=== PATIENT | female | born 1990 | race Caucasian/White ===

== ENCOUNTER 2020-05-05 21:57 | Emergency (ER) | payer SELFPAY ==
[~2020-05-05] VITALS: Ht 167.6 cm; Wt 90.7 kg
== END 2020-05-05 23:03 | disposition home or self-care (01) ==
LOC: ER 21:57
DX: S91.115A Laceration without foreign body of left lesser toe(s) without damage to nail, initial encounter (principal); Z88.5 Allergy status to narcotic agent; W29.3XXA Contact with powered garden and outdoor hand tools and machinery, initial encounter
CPT/HCPCS: 12001; 99282-25

== ENCOUNTER → 2020-10-23 | Outpatient (CLI) | payer OTHER ==
[2020-10-25 07:10] LABS: HPV 16 Negative (Negative); HPV 18 Negative (Negative); HPV OTHER HR TYPES Negative (Negative)
== END | disposition home or self-care (01) ==
LOC: LAB 15:37 → LAB SHORT 15:37
PROVIDERS: Family Medicine
DX: O09.91 Supervision of high risk pregnancy, unspecified, first trimester (principal)
CPT/HCPCS: 87624; G0123

== ENCOUNTER 2020-12-01 11:53 | Emergency (ER) | payer OTHER ==
[~2020-12-01] VITALS: Ht 172.7 cm; Wt 112.0 kg
[2020-12-01 12:58] LABS: Source, Urine Clean Catch
[2020-12-01 13:06] LABS: BASOPHILS ABSOLUTE AUTO 0.02 K/mm3 (0.00-0.23); BASOPHILS PERCENT AUTO 0 % (0-2); EOSINOPHILS ABSOLUTE AUTO 0.19 K/mm3 (0.00-0.68); EOSINOPHILS PERCENT AUTO 2 % (0-6); Hematocrit 37.8 % (33.0-51.0); Hemoglobin 12.5 g/dL (11.5-16.0); IMMATURE GRAN ABSOLUTE AUTO 0.05 K/mm3 (0.00-0.10); IMMATURE GRAN PERCENT AUTO 0 % (0-1); LYMPHOCYTES ABSOLUTE AUTO 2.21 K/mm3 (0.84-5.20); LYMPHOCYTES PERCENT AUTO 18 % (21-46); MONOCYTES ABSOLUTE AUTO 0.54 K/mm3 (0.16-1.47); MONOCYTES PERCENT AUTO 4 % (4-13); Mean Corpuscular HGB 29.4 pg (26.0-34.0); Mean Corpuscular HGB Conc 33.1 g/dL (31.5-36.5); Mean Corpuscular Volume 89 fL (80-100); Mean Platelet Volume 10.4 fL (9.1-12.4); NEUTROPHILS ABSOLUTE AUTO 9.21 K/mm3 (1.96-9.15); NEUTROPHILS PERCENT AUTO 75 % (41-73); Platelet Count 286 K/mm3 (150-400); RDW Coefficient Variation 15.2 % (11.7-14.2); RDW Standard Deviation 49.1 fL (35.1-46.3); Red Blood Cell Count 4.25 M/mm3 (3.80-5.20); White Blood Cell Count 12.22 K/mm3 (4.00-11.30)
[2020-12-01 13:07] LABS: Appearance, Urine Clear (Clear); Bilirubin, Urine Neg (Neg); Blood, Urine 4+ (Neg); Color, Urine Yellow (P-Yellow); Glucose Qualitative, Urine Neg (Neg); Ketones, Urine Neg (Neg); Leukocyte Esterase, Urine Neg (Neg); Nitrite, Urine Neg (Neg); Protein, Urine Neg (Neg); Urobilinogen, Urine NORM (Normal)
[2020-12-01 13:28] LABS: Alanine Aminotransfer (ALT/SGP 12 U/L (12-78); Albumin/Globulin Ratio 0.6 (0.8-1.8); Alk Phos 83 U/L (50-136); Anion Gap 6 mmol/L (6-16); Aspartate Aminotrans (AST/SGOT 15 U/L (12-37); Bilirubin, Total 0.2 mg/dL (0.1-1.0); Blood Urea Nitrogen 6 mg/dL (8-24); Bun/Creatinine Ratio 11.2 (12.0-20.0); CO2, Blood 24 mmol/L (21-32); Calcium, Blood 9.3 mg/dL (8.5-10.1); Chloride, Blood 106 mmol/L (98-108); Creatinine, Blood 0.54 mg/dL (0.40-1.00); Globulin, Blood 4.7 g/dL (2.2-4.0); Glomerular Filtration Rate >60 (60-); Glucose, Blood 77 mg/dL (70-99); Potassium, Blood 3.8 mmol/L (3.5-5.5); Sodium, Blood 136 mmol/L (136-145); Total Protein, Blood 7.7 g/dL (6.4-8.2)
[2020-12-01 13:32] LABS: Red Blood Cells, Urine 0-2 /hpf (0-2); Squamous Epithelial Cells Mod /hpf (Few)
[2020-12-01 13:33] LABS: Bacteria Many /hpf
[2020-12-01] MEDS ORDERED: ZOLOFT100 M6 PO (14:12)
[2020-12-01] MEDS ORDERED: Keflex500 MG PO (15:13)
== END 2020-12-01 15:20 | disposition home or self-care (01) ==
LOC: ER 11:53
PROVIDERS: Physician Assistant
DX: O20.0 Threatened abortion (principal); O23.42 Unspecified infection of urinary tract in pregnancy, second trimester; F17.200 Nicotine dependence, unspecified, uncomplicated; Z3A.19 19 weeks gestation of pregnancy; Z88.5 Allergy status to narcotic agent
CPT/HCPCS: 76815; 80053; 81001; 85025; 86900; 86901; 96365; 96372-59; 99284-25; J0696; J2791; J7120

== ENCOUNTER → 2021-04-26 | Outpatient (CLI) | payer OTHER ==
[~2021-04-26] MED LIST: Keflex500 MG PO; ZOLOFT100 M6 PO
== END | disposition home or self-care (01) ==
LOC: LAB SHORT 13:07
DX: O09.91 Supervision of high risk pregnancy, unspecified, first trimester (principal)
CPT/HCPCS: 87081; 87150

== ENCOUNTER 2021-05-01 05:15 | Inpatient (IN) | payer OTHER ==
[~2021-05-01] VITALS: Ht 172.7 cm; Wt 116.8 kg
[2021-05-01] MEDS ORDERED: B12-FOLIC ACID1 EACH PO (05:46)
[2021-05-01] MEDS ORDERED: Iron Chews15 MG PO (05:46)
[2021-05-01] MEDS ORDERED: PRENATAL TABLE1 EAC2 PO (05:46)
[2021-05-01 06:20] LABS: BASOPHILS ABSOLUTE AUTO 0.02 K/mm3 (0.00-0.23); BASOPHILS PERCENT AUTO 0 % (0-2); EOSINOPHILS ABSOLUTE AUTO 0.18 K/mm3 (0.00-0.68); EOSINOPHILS PERCENT AUTO 1 % (0-6); Hematocrit 31.9 % (33.0-51.0); Hemoglobin 10.5 g/dL (11.5-16.0); IMMATURE GRAN ABSOLUTE AUTO 0.05 K/mm3 (0.00-0.10); IMMATURE GRAN PERCENT AUTO 0 % (0-1); LYMPHOCYTES ABSOLUTE AUTO 2.91 K/mm3 (0.84-5.20); LYMPHOCYTES PERCENT AUTO 20 % (21-46); MONOCYTES ABSOLUTE AUTO 0.73 K/mm3 (0.16-1.47); MONOCYTES PERCENT AUTO 5 % (4-13); Mean Corpuscular HGB 28.5 pg (26.0-34.0); Mean Corpuscular HGB Conc 32.9 g/dL (31.5-36.5); Mean Corpuscular Volume 87 fL (80-100); Mean Platelet Volume 10.1 fL (9.1-12.4); NEUTROPHILS ABSOLUTE AUTO 10.52 K/mm3 (1.96-9.15); NEUTROPHILS PERCENT AUTO 73 % (41-73); Platelet Count 352 K/mm3 (150-400); RDW Coefficient Variation 14.5 % (11.7-14.2); RDW Standard Deviation 45.4 fL (35.1-46.3); Red Blood Cell Count 3.68 M/mm3 (3.80-5.20); White Blood Cell Count 14.41 K/mm3 (4.00-11.30)
[2021-05-01 07:13] LABS: Influenza A, PCR NEGATIVE (NEGATIVE); Influenza B, PCR NEGATIVE (NEGATIVE); Resp Syncytial Virus, PCR NEGATIVE (NEGATIVE); SARS-Cov-2 (COVID-19) PCR, MMC NEGATIVE (NEGATIVE)
--- NOTE | 2021-05-02 01:00 | NUR ---
RN ENTERED ROOM, FOUND PATIENT ASLEEP WITH IN BED. PATIENT WOKEN UP, AND INFORMED OF SAFE SLEEPING PRACTICES. PATIENT STATED SHE "DID NOT MEAN TO FALL ASLEEP". VITAL SIGNS STABLE
--- NOTE | 2021-05-02 16:03 | NUR ---
DISCHARGE SUMMARY PT DISCHARGED HOME WITH BABY. PT LEFT ROOM PRIOR TO THIS NOTE WITH ILLUMINATOR ESCORT ON STEADY GAIT. NO IV PRESENT THIS SHIFT. ALL BELONGINGS RETURNED. DISCHARGE TEACHING COMPLETED, ALL QUESTIONS ANSWERED. PT AGREES TO FOLLOW UP WITH OB, AND TREE DEADENER SCHEDULED. PT EDUCATED ON MEDICATIONS AND WAS GIVEN PRESCRIPTION FOR PAIN CONTROL. PT EDUCATED ON WHEN TO SEEK FURTHER MEDICAL CARE IN CASE OF EMERGENCY, ETC. PT REPORTS GI SYMPTOMS ARE IMPROVED FROM THIS MORNING AND IS READY TO GO HOME. PER DONALDO LINCOLN, PATIENT OKAY TO DISCHARGE HOME.
--- NOTE | 2021-05-02 16:06 | NUR ---
DISCHARGE NOTE PT DISCHARGED HOME WITH BABY WITH MACHINE SIGN WRITER ESCORT AND SPOUSE PRESENT PRIOR TO THIS NOTE ON STEADY GAIT. . IV DC'D AND BELONGINGS RETURNED. ALL DISCHARGE TEACHING COMPLETED, ALL QUESTIONS ANSWERED. PT AGREES TO FOLLOW UP WITH OB AND OUTPATIENT CLINIC AND SCHEDULED WELL APPOINTMENT FOR INFANT. PT EDUCATED ON MEDICATIONS.
== END 2021-05-02 15:30 | disposition home or self-care (01) | DRG 807 ==
LOC: OBS 05:15 → BC 05:18 → OBS 05:19 → BC 19:37
PROVIDERS: ADMIT Family Medicine
PROC: 10E0XZZ Delivery of Products of Conception, External Approach (ICD-10-PCS; principal; 2021-05-01)
PROC: 10907ZC Drainage of Amniotic Fluid, Therapeutic from Products of Conception, Via Natural or Artificial Opening (ICD-10-PCS; 2021-05-01)
PROC: 3E0R3BZ Introduction of Anesthetic Agent into Spinal Canal, Percutaneous Approach (ICD-10-PCS; 2021-05-01)
PROC: 00HU33Z Insertion of Infusion Device into Spinal Canal, Percutaneous Approach (ICD-10-PCS; 2021-05-01)
PROC: 3E033VJ Introduction of Other Hormone into Peripheral Vein, Percutaneous Approach (ICD-10-PCS; 2021-05-01)
DX: O99.214 Obesity complicating childbirth (principal); Z37.0 Single live birth; E66.01 Morbid (severe) obesity due to excess calories; Z3A.40 40 weeks gestation of pregnancy; Z90.49 Acquired absence of other specified parts of digestive tract; Z20.822 Contact with and (suspected) exposure to COVID-19; Z98.890 Other specified postprocedural states; O26.893 Other specified pregnancy related conditions, third trimester; Z67.11 Type A blood, Rh negative; O99.334 Smoking (tobacco) complicating childbirth; F17.210 Nicotine dependence, cigarettes, uncomplicated; Z88.5 Allergy status to narcotic agent; O43.123 Velamentous insertion of umbilical cord, third trimester; O71.82 Other specified trauma to perineum and vulva; O69.81X0 Labor and delivery complicated by cord around neck, without compression, not applicable or unspecified
CPT/HCPCS: 0241U; 36415; 51702; 85025; 86850; 86900; 86901; A9270; J1885; J2001; J2590; J3010; J7120

== ENCOUNTER 2021-09-12 16:11 | Emergency (ER) | payer OTHER ==
[~2021-09-12] VITALS: Ht 172.7 cm; Wt 90.7 kg
[~2021-09-12 16:11] MED LIST changes: +B12-FOLIC ACID1 EACH PO; +Iron Chews15 MG PO; +PRENATAL TABLE1 EAC2 PO
[2021-09-12] MEDS ORDERED: LIDO700A20 TOP (18:25)
== END 2021-09-12 18:38 | disposition home or self-care (01) ==
LOC: ER 16:11
DX: M54.32 Sciatica, left side (principal); F17.200 Nicotine dependence, unspecified, uncomplicated; Z88.5 Allergy status to narcotic agent; Z79.899 Other long term (current) drug therapy
CPT/HCPCS: 93971; A9270